=== PATIENT | male | born 1980 | race Caucasian/White ===

== ENCOUNTER 2023-06-25 04:10 | Emergency (ER) | payer BC, OTHER ==
[2023-06-25 04:16] VITALS: BP 125/84; PULSE 100; RESP 16; BMI 30.4
[2023-06-25 04:55] LABS: BASO % 0.2 % (0-2.0); EOS % 0.9 % (0-4.5); HEMATOCRIT 44.8 % (35.4-49); LYMPH % 14.1 % (8-40); MCH 29.6 pg (25.7-33.7); MCHC 33.6 g/dl (32.0-35.9); MEAN CELL VOLUME 88.2 fl (80-96); MEAN PLT VOLUME 8.4 fl (7.5-11.1); MONO % 5.3 % (3.8-10.2); NEUT % 79.5 % (42.8-82.8); PLATELET COUNT 240 10^3/uL (134-434); RBC 5.08 M/mm3 (4.00-5.60); RDW 14.1 % (11.9-15.9); WHITE BLOOD COUNT 13.4 K/mm3 (4.0-10.0)
[2023-06-25 05:23] LABS: POTASSIUM 4.4 mmol/L (3.5-5.1)
[2023-06-25 05:25] LABS: ALBUMIN 4.1 g/dl (3.4-5.0); BLOOD UREA NITROGEN 12.3 mg/dL (7-18); CALCIUM 8.5 mg/dL (8.5-10.1)
[2023-06-25 05:29] LABS: CREATININE 1.1 mg/dL (0.55-1.3)
[2023-06-25 05:30] LABS: BILIRUBIN,TOTAL 0.2 mg/dL (0.2-1); TOT PROT 7.9 g/dl (6.4-8.2)
[2023-06-25 06:16] VITALS: TEMP 98
== END 2023-06-25 06:44 | disposition home or self-care (01) ==
LOC: JER 04:10
DX: R46.4 Slowness and poor responsiveness (principal); T40.604A Poisoning by unspecified narcotics, undetermined, initial encounter; F10.920 Alcohol use, unspecified with intoxication, uncomplicated
CPT/HCPCS: 36415; 80053; 80307; 82962; 84484; 85025; 99283-25